=== PATIENT | male | born 1945 | race Hispanic/Latino ===

== ENCOUNTER 2016-10-17 12:05 | Day surgery (SDC) | payer MEDICARE, OTHER ==
[2013-12-20 10:51] VITALS: BMI 21.2
[2016-10-17] MEDS ORDERED: cefTRIAXone IV 1 gm in Dextros 50 ML IVPB ONE (15:11)
[2016-10-17] MEDS ORDERED: Lidocaine 2% Jelly (Uro-Jet) ONE (15:11)
[2016-10-17] MEDS ORDERED: Lactated Ringer's 1,000 ML IV ONE (15:15)
[2016-10-17] MEDS ORDERED: Propofol 10 mg/ml Inj (20 ML) ONE (15:20)
[2016-10-17] MEDS ORDERED: Midazolam 2 MG/2 ML VIAL ONE (15:20)
[2016-10-17] MEDS ORDERED: Oxycodone/Acetaminophen 5/325 mg Tab PO PRN (15:25)
[2016-10-17] MEDS ORDERED: ePHEDrine 50 mg/ml Inj ONE (15:28)
[2016-10-17] MEDS ORDERED: HYDROmorphone 0.5 mg/0.5 ml ISec IVP PRN (16:14)
[2016-10-17 16:22] VITALS: O2SAT 100
[2016-10-17 17:18] VITALS: BP 138/78; PULSE 78; RESP 18; TEMP 97.8
--- NOTE | 2016-10-17 18:46 | OP ---
PROCEDURE DATE: 10/17/2016 PREOPERATIVE DIAGNOSES: Voiding dysfunction, gross hematuria and a bladder neck mass. POSTOPERATIVE DIAGNOSES: Voiding dysfunction, gross hematuria and a bladder neck mass, rule out craft sitional cell carcinoma. PROCEDURE: Cystoscopy, bladder biopsy and then a TURBT. We removed about 3 grams of tissue in total. BLOOD LOSS: Less than 10 mL. Chiang catheter was left in place. There were no complications. INDICATIONS: See the history and physical for details. Very pleasant 71-year-old gentleman who I pr eviously treated quite some time ago for voiding dysfunction. At that time, we did a TURP. Subseque ntly, the patient is doing well and no further followups until he presented with gross hematuria. We discussed options and he is here today for the above listed procedure. FINDINGS TODAY: Normal anterior, no stricture of the veru. It is a little tight in the pendulous ur ethra. It is not pinpoint and I can get even a 26 English resectoscope in, but without any major dila tion, but it is definitely not as wide open. From the veru on in it is fairly open at the bladder ne ck on the patient's right side, the left side of the screen there is a little lesion that is just sti cking down about a cm in size. It appears to be transitional cell carcinoma grossly (the possibility for just granulomatous tissue i s possible), that is why I did a separate biopsy. It is possible that it is some transitional cell c arcinoma and it is some healed tissue, it is difficult to tell. You could see the biopsy from the of [facility] as well but that was just a very tiny sample of tissue. So we did both today, we did a biopsy o f more tissue and we did a full resection. PROCEDURE: Timeouts were called to confirm the patient and positioning and he was given antibiotic p rophylaxis. We started with the cystoscope via urethra, a 22 English scope. We identified this lesion. We also i nspected the bladder very carefully with the patient sleeping. No further lesions are seen. The ure teral orifices showed clear efflux from both sides. No other abnormalities detected. We now took a sample cold cup biopsy. We now transitioned over to the resectoscope, we introduced the resectoscope with the obturator and a gain, the narrowing is noted, but otherwise no very tightness noted. Now we continue procedure here. We identified the ureteral orifices and we used the continuous flow resectoscope and we began along the bladder neck on the patient's right side and removed all the tiss ue including a little bit more distally and all around the bladder neck. It is actually fairly thick tissue (hopefully most of this is scar or prostatic tissue, not all TCC). We will have to see the pathology. It cuts well and we achieved hemostasis easily. We reinspect. We are far away from ureteral orifice s. Multiple pictures were taken and saved. At this point, I inserted a Chiang catheter via the urethra. All the water was turned off. There is no bleeding noted. Chiang catheter inserted via the urethra without difficulty, connected to a drainage bag and then kerline ent brought to the recovery room in stable condition. Luis Felipe Little MD cc: [id number] TT: 10/17/2016 18:44:53 jn
--- NOTE | 2016-10-20 06:58 | HP ---
REASON FOR ADMISSION: The patient is a very pleasant gentleman. He is here for TURBT. He is a very pleasant gentleman I know well. I have not heard from him in a little while. We previously did a re section of his prostate. That was done for voiding dysfunction. At that time, he also had gross james turia. Workup never found any malignancy. We had discussed various options with the patient at that time. He then did subsequently very well w ith no subsequent problems. Then most recently, I saw the patient. He came to the office as an emergency. His had called maximilian suarez that he had gross hematuria. We subsequently saw the patient the next day. We did a cysto. We found a bladder tumor right at the bladder neck. Otherwise, pretty open prostate. We discussed options. He had a workup including outpatient medical clearance from who I will made sure well he gets a copy of this note. Then he had an outpatient CT scan. We discussed various options and he is here today for a TURBT. I nterestingly, since the initial time, he has not had any recurrent episodes of bleeding. PAST MEDICAL AND SURGICAL HISTORY: As listed on the chart. Otherwise, unremarkable from a urology s tanoint. As mentioned, we obtained medical clearance from . REVIEW OF SYSTEMS: Listed above, noncontributory. SOCIAL HISTORY: He is . He comes to the office with his . PHYSICAL EXAMINATION: GENERAL: Well-nourished male, in no apparent distress. VITAL SIGNS: Normal. ABDOMEN: Overall soft, nontender, not grossly distended. GENITOURINARY: Normal male phallus without discharge. No testicular masses. RECTAL: A 30 gram prostate, soft and smooth. LABORATORY DATA: See chart. DIAGNOSIS: Gross hematuria, voiding dysfunction and a bladder mass. It is right, sitting at the jose dder neck, right at the border on the patient's right side, way away from the orifices. It is really just on the bladder neck itself. Multiple pictures will be taken today. PLAN: As follows: We will plan for a TURBT. Risks and benefits . Luis Felipe Little MD cc: [id number] TT: 10/17/2016 17:16:08 sn
== END 2016-10-17 17:26 | disposition home or self-care (01) ==
LOC: C.SDS 12:05
PROVIDERS: ATTEND Urology
DX: N32.89 Other specified disorders of bladder (principal); R31.0 Gross hematuria
CPT/HCPCS: 52204; 88305; J0696; J7120